=== PATIENT | male | born 1940 | race Caucasian/White ===

== ENCOUNTER 2017-08-01 05:31 | Day surgery (SDC) | payer MEDICARE, BC ==
[2017-08-01] VITALS (12 sets, daily range): BP systolic 128–182; BP diastolic 34–66; PULSE 52–91; TEMP 97.4–98.7
[~2017-08-01] VITALS: Ht 177.8 cm; Wt 88.2 kg
[2017-08-01] MEDS ORDERED: ASPIRIN 81M81 MG/TA2 PO (06:47)
[2017-08-01] MEDS ORDERED: VITAMINC1000TA PO (06:47)
[2017-08-01] MEDS ORDERED: GLUCOPHAGE1000 MG PO (06:50)
[2017-08-01] MEDS ORDERED: RISPERDAL 1M1 MG/TAB PO (06:51)
[2017-08-01] MEDS ORDERED: ZESTRIL40 MG PO (06:51)
[2017-08-01] MEDS ORDERED: NOVOLIN 70/30 710 ML SQ (06:51)
[2017-08-01] MEDS ORDERED: PLAVIX 75MG TAB75 MG PO (06:52)
[2017-08-01] MEDS ORDERED: PAXIL 20MG20 MG PO (06:53)
[2017-08-01] MEDS ORDERED: CANA300T PO (06:54)
[2017-08-01] MEDS ORDERED: TRICOR145 MG PO (06:54)
[2017-08-01] MEDS ORDERED: VITAMIN B11000 MCG/M IM (06:55)
[2017-08-01] MEDS ORDERED: NATURAL IRON65 MG PO (06:56)
[2017-08-01] MEDS ORDERED: CATAPRES 0.1MG0.1 MG PO (06:57)
[2017-08-01] MEDS ORDERED: TOPROL XL 25MG25 MG PO (06:58)
[2017-08-01] MEDS ORDERED: FLOMAX 0.40.4 MG/CAP PO (06:58)
[2017-08-01] MEDS ORDERED: VALIUM 5MG T5 MG/TAB PO (06:58)
[2017-08-01] MEDS ORDERED: PEPCID 20MG TAB20 MG PO (06:58)
[2017-08-01] MEDS ORDERED: CRESTOR 10MG10 MG PO (06:59)
[2017-08-01] MEDS ORDERED: TRESIBA FL100 UNIT/1 SQ (06:59)
[2017-08-02 02:41] VITALS: BP 175/50; PULSE 73; TEMP 98.4
[2017-08-02 05:30] VITALS: BP 183/64; PULSE 66; TEMP 98.4
[2017-08-02 06:34] LABS: HEMATOCRIT 42.3 % (42.0-52.0); HEMOGLOBIN 13.4 g/dl (13.5-18.0); MEAN CELL VOLUME 90 fl (80.0-100.0); MEAN CORPUSCULAR HEMOGLOBIN 29 pg (27.0-31.0); MEAN CORPUSCULAR HGB CONC 32 g/dl (33.0-37.0); PLATELET COUNT 315 K/mm3 (130-400); RED BLOOD COUNT 4.69 M/mm3 (4.20-5.60); REDCELL DISTRIBUTION WIDTH-CV 15.1 % (11.5-14.5)
[2017-08-02 09:44] VITALS: BP 173/52; PULSE 78; TEMP 97.7
== END 2017-08-02 10:40 | disposition home or self-care (01) ==
LOC: SDCO 05:31 → SURG 05:31 → SDCO 07:30 → SURG 10:35 → SDCO 08-02 10:40
PROVIDERS: Urology
DX: N40.1 Benign prostatic hyperplasia with lower urinary tract symptoms (principal); R33.9 Retention of urine, unspecified; N32.0 Bladder-neck obstruction; E11.9 Type 2 diabetes mellitus without complications; I10 Essential (primary) hypertension; E78.00 Pure hypercholesterolemia, unspecified; G47.33 Obstructive sleep apnea (adult) (pediatric); M19.90 Unspecified osteoarthritis, unspecified site; N39.0 Urinary tract infection, site not specified; Z79.82 Long term (current) use of aspirin; Z79.4 Long term (current) use of insulin; Z87.891 Personal history of nicotine dependence; Z86.73 Personal history of transient ischemic attack (TIA), and cerebral infarction without residual deficits
CPT/HCPCS: OP; J0461; J0690; J1100; J1815; J2405; J2704; J3010; J7030